=== PATIENT | female | born 1990 | race Caucasian/White ===

== ENCOUNTER 2024-09-19 15:59 | Outpatient (RCR) | payer OTHER, SELFPAY ==
[2024-09-19 16:46] VITALS: BP 126/76; PULSE 84
== END 2024-10-25 07:35 | disposition home or self-care (01) ==
LOC: ANHOBOP 15:59
PROVIDERS: Visit Provider Obstetrics & Gynecology
DX: O13.9 Gestational [pregnancy-induced] hypertension without significant proteinuria, unspecified trimester (principal)
CPT/HCPCS: 59025

== ENCOUNTER 2024-09-21 10:04 | Inpatient (IN) | payer OTHER, SELFPAY ==
[2024-09-21] VITALS (46 sets, daily range): BP systolic 106–129; BP diastolic 65–92; PULSE 70–95; RESP 14–20; TEMP 36.4–36.9; O2SAT 95–100; BMI 30.1
--- OUTSIDE RECORDS SUMMARY | 2024-09-21 10:20 | XMS_ITS | Clinical Summary ---
Author Organization [facility] Address [address] [place] [id number]. [place], [place] [id number] [place] [id number] Care Team Providers Care Manager Graphic Name Role Phone None, Provider MD Primary Care Provider Unavaila ble Allergies No known active allergies Medications methadone (METHADOSE) 40 MG disintegrating tablet Take 3.5 tablets (140 mg total) by mouth. Active Social History Tobacco Use Types Packs/Day Years Used Date Smoking Tobacco: Never Assessed Estimated Date of Delivery Comme nts Yes 12/19/2023 Sex and Gender Information Value Date Recorded Sex Assigned at Not on file Legal Sex Female 5:47 PM [employer] Gender Identity Not on file Sexual Orientation Not on file Last Filed Vital Signs Vital Sign Reading Time Taken Comments Blood Pressure 115/68 01/30/2024 8:00 PM CDT Pulse 95 01/30/2024 6:50 PM CDT Temperature 36.9 ??C (98.5 ??F) 01/30/2024 6:25 PM CD T Respiratory Rate 18 01/30/2024 6:25 PM CDT Oxygen Saturation 95% 01/30/2024 8:00 PM CDT Inhaled Oxygen Concentration - - Weight 78.2 kg (172 lb 6.4 oz) 01/30/2024 6:25 P M CDT Height 161.3 cm (5' 3.5 ) 01/30/2024 6:25 PM CDT Body Mass Index 30.06 01/30/2024 6:25 PM CDT Plan of Treatment Health Maintenance Due Date Last Done Comments Cervical Cancer Screening Pap Smear (Age 30 to 64) Every 3 Years 1989 Annual Physical 1992 DTaP, Tdap and Td Vaccines (6 - Tdap) 04/16/2004 04/15/2004, 04/05/1995, 01/30/1991, Additional history exists Hepatitis C 2007 Cervical Cancer Screening Pap with HPV Testing (Age 30 to 64) Every 5 Years 2019 Cervical Cancer Screening with HPV 2019 COVID-19 Vaccine (2023- season) 2024 05/04/2021 Influenza Adult (#1) 2024 RSV Immunization or 60+ Years (1 - 1-dose 75+ series) 2064 Hepatitis B Vaccines Completed 01/17/2000, 08/08/1999, 07/04/1999 HPV Vaccines Aged Out No longer eligi ble based on patient's age to complete this topic Meningococcal Vaccine Aged Out No grayson humza eligible based on patient's age to complete this topic Pneumococcal Vaccine: Pediatrics (0 to 5 Years) and At-Risk Patients (6 to 64 Years) Aged Out No longer eligible based on patient's age to complete this topic RSV Immunizations Under 20 Months Aged Out No longer eligible based on patient's age to complete this topic Insurance [address] [place] [address] [place] Care Teams Manager Graphic Relationship Specialty Start Date End Date None, Provider, MD PCP - General UNKNOWN PHYSICIAN SPECIALTY 01/30/24
--- OUTSIDE RECORDS SUMMARY | 2024-09-21 10:21 | XMS_ITS | Data Portability ---
Author Organization [facility] [place] Address [address] [place] [address] Assessment Encounter Date Assessment Date Assessment LastModified by Organization Details LastModified Time 09/19/2024 09/19/2024 Patient is ___weeks . Discussed plan. Not available 09/19/2024 12:26:41 Plan of Treatment Reminders Order Date Submit Date Provider Last Modified By Organization Details Last Modified Time Details Appointments None recorde d. Lab CBC w/ auto diff 024 08/22/20 24 [facility] (Lab), [address], [place], [address], 5 04:40:37 iron + TIBC + ferriti n, serum 024 08/22/20 24 [facility] (Lab), [address], [place], [address], 5 04:40:37 Referral None recorde d. Procedures None recorde d. Surgeries None recorde d. Imaging US, obstetr ic, follow- up 024 08/04/20 24 [email or web address] [place], [address], [place], [address], 4 20:34:31 Medication Orders None recorde d. Patient TargetsNo targets recorded. Patient InstructionsNo instructions recorded. Reason for Referral None Reported. Results Created Date Observation Date Name Description Value Unit Range Abnormal Flag Note LastModifiedBy Organization Detail LastModifiedTime 07/07/20 24 07/07/2024 HEMAT OCRIT (HCT) HCT 31.6 % (based on docume nted legal sex) 34.0-4 5.0 low Not Available [facility] (Lab) [address], [place], [address], 07/08/2024 14:51:42 07/07/20 24 07/07/2024 HEMOG LOBIN (HGB) HGB 10.2 g/dL (based on docume nted legal sex) 11.6-1 5.4 low Not Available [facility] (Lab) [address], [place], [address], 07/08/2024 14:51:43 07/07/20 24 07/07/2024 GTT - GESTA CALIN L MARILUZ N, ACOG OB glucose, 1 hour screen 109 mg/dL 70-135 Not Available [facility] (Lab) [address], [place], [address], 07/08/2024 14:51:43 07/07/20 24 07/07/2024 HIV 1/2 ANTIG EN/AN TIBOD Y, REFLE X CONFI RMATI ON HIV antigen/anti body Nonrea ctive nonrea ctive HIV-1 antig en and HIV-1 /HIV- 2 antib odies were not detec carline. No labor atory evide nce of HIV infec tion. Not Available [facility] (Lab) [address], [place], [address], 07/08/2024 14:51:44 07/07/20 24 07/07/2024 RPR SCREE N, REFLE X TITER /CONF IRMAT ION RPR screen Nonrea ctive nonrea ctive Not Available [facility] (Lab) [address], [place], [address], 07/08/2024 14:51:44 09/05/19 25 09/05/2024 CULTU RE: GROUP B STREP SCREE N, REFLE X SUSCE PTIBI LITY result report SEE RESULT S BELOW Test: Cultu re: Group B Strep , Refle x Susce ptibi lity ([facility]/ [facility] ) Speci men Sourc e: Vagin a/Rec hank Speci men Type: Vagin al/Re ctal Speci men Date: 2024 1522 Resul t Date: 2024 1430 Resul t Statu s: Final resul t Abnor mal: No Resul ting Lab: [facility] [address] [facility] [facility] [address] Tel: CULTU RE ----- ----- ----- --- No Group B strep isola carline at 2 days (dinora ctive broth enhan cemen t) Not Available [facility] (Lab) [address], [place], [address], 09/08/2024 15:34:08 09/10/19 25 09/10/2024 CBC W/DIF F WBC 8.6 10'3/ uL 3.5-10 .5 Not Available [facility] (Lab) [address], [place], [address], 09/11/2024 04:40:35 09/10/19 25 09/10/2024 CBC W/DIF F RBC 3.87 10'6/ uL (based on docume nted legal sex) 3.80-5 .20 Not Available [facility] (Lab) [address] [place], [address], 09/11/2024 04:40:35 09/10/19 25 09/10/2024 CBC W/DIF F HGB 11.2 g/dL (based on docume nted legal sex) 11.6-1 5.4 low Not Available [facility] (Lab) [address], [place], [address], 09/11/2024 04:40:35 09/10/19 25 09/10/2024 CBC W/DIF F HCT 34.8 % (based on docume nted legal sex) 34.0-4 5.0 Not Available [facility] (Lab) [address], [place], [address], 09/11/2024 04:40:35 09/10/19 25 09/10/2024 CBC W/DIF F MCV 89.9 fL 80.0-9 9.0 Not Available [facility] (Lab) [address], [place], [address], 09/11/2024 04:40:35 09/10/19 25 09/10/2024 CBC W/DIF F MCH 28.9 pg 27.0-3 4.0 Not Available [facility] (Lab) [address], [place], [address], 09/11/2024 04:40:35 09/10/19 25 09/10/2024 CBC W/DIF F MCHC 32.2 g/dL 32.0-3 5.5 Not Available [facility] (Lab) [address], [place], [address], 09/11/2024 04:40:35 09/10/19 25 09/10/2024 CBC W/DIF F RDW 15.3 % 11.0-1 5.0 high Not Available [facility] (Lab) [address], [place], [address], 09/11/2024 04:40:35 09/10/19 25 09/10/2024 CBC W/DIF F plt 271 10'3/ uL 150-40 0 Not Available [facility] (Lab) [address], [place], [address], 09/11/2024 04:40:35 09/10/19 25 09/10/2024 CBC W/DIF F MPV 11.4 fL 8.8-12 .1 Not Available [facility] (Lab) [address], [place], [address], 09/11/2024 04:40:35 09/10/19 25 09/10/2024 CBC W/DIF F neutrophils 79.1 % 34.0-7 3.0 high Not Available [facility] (Lab) [address], [place], [address], 09/11/2024 04:40:35 09/10/19 25 09/10/2024 CBC W/DIF F lymphocytes 12.9 % 15.0-5 0.0 low Not Available [facility] (Lab) [address], [place], [address], 09/11/2024 04:40:35 09/10/19 25 09/10/2024 CBC W/DIF F monocytes 6.4 % 1.0-15 .0 Not Available [facility] (Lab) [address], [place], [address], 09/11/2024 04:40:35 09/10/19 25 09/10/2024 CBC W/DIF F eosinophils 0.5 % 0.0-8. 0 Not Available [facility] (Lab) [address], [place], [address], 09/11/2024 04:40:35 09/10/19 25 09/10/2024 CBC W/DIF F basophils 0.7 % 0.0-2. 0 Not Available [facility] (Lab) [address], [place], [address], 09/11/2024 04:40:35 09/10/1909/10/2024 CBC W/DIF F immature granulocytes 0.4 % no define d refere nce range Immat ure Granu locyt es (IG) repre sents autom ated enume ratio n of Metam yeloc ytes, Myelo cytes and Promy elocy rafael when IG is < 5%. Blast s are not inclu ded in IG and repor carline separ ately if prese nt. Not Available [facility] (Lab) [address] [place], [address], 09/11/2024 04:40:35 09/10/19 25 09/10/2024 CBC W/DIF F absolute neutrophils 6.8 10'3/ uL 1.5-8. 0 Not Available [facility] (Lab) [address], [place], [address], 09/11/2024 04:40:35 09/10/19 25 09/10/2024 CBC W/DIF F absolute lymphocytes 1.1 10'3/ uL 1.0-4. 0 Not Available [facility] (Lab) [address], [place], [address], 09/11/2024 04:40:35 09/10/19 25 09/10/2024 CBC W/DIF F absolute monocytes 0.6 10'3/ uL 0.2-1. 0 Not Available [facility] (Lab) [address], [place], [address], 09/11/2024 04:40:35 09/10/19 25 09/10/2024 CBC W/DIF F absolute eosinophils 0.0 10'3/ uL 0.0-0. 6 Not Available [facility] (Lab) [address], [place], [address], 09/11/2024 04:40:35 09/10/19 25 09/10/2024 CBC W/DIF F absolute basophils 0.1 10'3/ uL 0.0-0. 3 Not Available [facility] (Lab) [address] [place], [address], 09/11/2024 04:40:35 09/10/1909/10/2024 CBC W/DIF F absolute immature granulocytes 0.0 10'3/ uL 0.00-0 .10 Refer ence range s for nonbi nary/ inter sex or unspe cifie d gende r patie nts have not been estab lishe d. Pleas e refer to the sherlyo wing table for range s estab lishe d for cisge nder patie nts and evalu ate in the clini shelbie mami xt of the indiv idual patie nt: https :[email or web address] gonsalves book. nm.or g/Gen derX Not Available [facility] (Lab) [address], [place], [address], 09/11/2024 04:40:35 09/10/19 25 09/10/2024 LISA TIN / IRON / TRANS LISA N / TIBC iron 37 ug/dL 40-170 low Not Available [facility] (Lab) [address], [place], [address], 09/11/2024 04:40:37 09/10/19 25 09/10/2024 LISA TIN / IRON / TRANS LISA N / TIBC transferrin 423 mg/dL 200-36 0 high Not Available [facility] (Lab) [address], [place], [address], 09/11/2024 04:40:37 09/10/19 25 09/10/2024 LISA TIN / IRON / TRANS LISA N / TIBC ferritin 8.8 NG/mL 8.0-25 2.0 Not Available [facility] (Lab) [address], [place], [address], 09/11/2024 04:40:37 09/10/19 25 09/10/2024 LISA TIN / IRON / TRANS LISA N / TIBC TIBC 592 ug/dL 250-45 0 high Not Available [facility] (Lab) [address], [place], [address], 09/11/2024 04:40:37 09/10/19 25 09/10/2024 LISA TIN / IRON / TRANS LISA N / TIBC iron saturation 6 % 20-55 low Not Available [facility] (Lab) [address], [place], [address], 09/11/2024 04:40:37 08/04/20 24 08/04/2024 US, obste tric, follo w-up No observ ation record ed. [email or web address] [place] [address], [place], [address], 08/04/2024 14:41:45 08/04/20 24 08/04/2024 US, obste tric, follo w-up No observ ation record ed. [email or web address] [facility] [address], [place], [address], 08/04/2024 17:51:15 09/19/19 25 09/19/2024 imagi ng/di agnos tic resul t No observ ation record ed. [facility] [address], [place], [address], 09/19/2024 19:30:08 Result Notes None recorded. Problems Name Problem SNOMED Code Status Onset Date Resolution Date Notes Provider Name and Address Organization Details Recorded Time Uterine scar from previous surgery affecting 89128790 Active 2023 CHUCKIE HUNTER MD [address], [place], [address], [facility] 4 11:06:39 Marijuana user 456556657 Active 2023 CHUCKIE HUNTER MD [address], [place], [address], [facility] 4 11:06:43 Tobacco user 589254731 Active 2023 CHUCKIE HUNTER MD [address], [place], [address], [facility] 4 11:06:45 Methadone dependenc e 133370150 Active 2023 CHUCKIE HUNTER MD [address], [place], [address], [facility] 4 11:06:46 95067626 Active 2023 Alea radford, [facility] 4 12:01:00 Past history of section 633973563 Active h/oPLTCS for breech presenata tion - desires TOLAC Do Grady null, [facility] 4 17:13:24 Past history of section 209293377 Active h/oPLTCS for breech presenata tion - desires TOLAC Do Grady null, [facility] 4 17:13:24 Problem Notes None recorded. Procedures Surgical History Date Name Laterality Status Provider Name and Address Organization Details Recorded Time 2 Caesarean Section completed [facility] 02/19/2024 10:32:05 1 Date of Last Pap Smear completed [facility] 02/19/2024 10:38:16 6 Orthopedic Surgery completed [facility] 02/19/2024 10:41:01 Imaging Results Imaging Date Name Status LastModified by Organiz ation Details LastModified Time 08/04/2024 US, obstetric, follow-up completed [email or web address] [place] [address], [place], [address], 08/04/2024 14:41:45 08/04/2024 US, obstetric, follow-up completed [address] [address] [facility], [place], [address], 08/04/2024 17:51:15 09/19/2024 imaging/diag nostic result active [facility] [address], [place], [address], 09/19/2024 19:30:08 Procedure Notes None recorded. Medical Equipment None Reported. Allergies No known drug allergies Medications Name Sig Start Date Stop Date Status Note LastModified by Organization Details LastModified Time amoxicillin 500 mg capsule TAKE 1 CAPSULE BY MOUTH THREE TIMES DAILY FOR 7 DAYS 02/18 completed Not Available Not Available Not Available ondansetron HCl 4 mg tablet TAKE 1 TABLET BY MOUTH EVERY 4 TO 6 HOURS NEEDED FOR NAUSEA active Not Available Not Available No t Available methadone 10 mg/mL oral concentrate active Not Available Not Available Not Available LEGAL NURSE CONSULTANT-PNV-DHA 28 mg iron-1 mg-200 mg capsule Take 1 capsule every day by oral route as directed . 2023 active Not Available Not Available Not Avai lable Vitals Date Recorded Body height Body mass index (BMI) Body weight Systolic blood pressure Diastolic blood pressure Provider Name and Address Organization Details Last Updated DateTime 08/04/2024 161.29 cm 29.3 kg/m2 07750.52 g 121 mm[Hg] 71 mm[Hg] Cat [facility] 4 14:38:41 Date Recorded Body height Body mass index (BMI) Body weight Systolic blood pressure Diastolic blood pressure Provider Name and Address Organization Details Last Updated DateTime 08/22/2024 161.29 cm 29.3 kg/m2 60617.52 g 114 mm[Hg] 83 mm[Hg] [facility] 12:35:51 Date Recorded Body height Body mass index (BMI) Body weight Systolic blood pressure Diastolic blood pressure Provider Name and Address Organization Details Last Updated DateTime 09/05/2024 161.29 cm 30 kg/m2 62796.89 g 120 mm[Hg] 79 mm[Hg] Rosita Deluca [facility] 5 12:48:07 Date Recorded Body height Body mass index (BMI) Body weight Systolic blood pressure Diastolic blood pressure Provider Name and Address Organization Details Last Updated DateTime 09/10/2024 161.29 cm 29.3 kg/m2 90187.52 g 131 mm[Hg] 80 mm[Hg] [facility] 5 12:45:07 Date Recorded Body weight Body mass index (BMI) Body height Systolic blood pressure Diastolic blood pressure Systolic blood pressure Diastolic blood pressure Provider Name and Address Organization Details Last Updated DateTime 5 69578.7 029 g 29.6 kg/m2 161.29 cm 144 mm[Hg] 94 mm[Hg] 166 mm[Hg] 102 mm[Hg] Alea Negrete [facility] 12:44:57 Social History Question Answer Notes LastModified by Organizat ion Details LastModified Time What Is Your Level Of Alcohol Consumption? None Information not available 02/19/2024 Are You Blind Or Do You Have Difficulty Seeing? No Information n ot available 02/19/2024 What Is Your Level Of Caffeine Consumption? Moderate Information not available 02/19/2024 How Much Tobacco Do You Chew? None Information not available 02/19/2024 In The 14 Days Before Symptom Onset, Have You Had Close Contact With A Laboratory-confirm ed COVID-19 While That Case Was Ill? No Information n ot available 02/19/2024 In The 14 Days Before Symptom Onset, Have You Had Close Contact With A Person Who Is Under Investigation For COVID-19 While That Person Was Ill? No Information not available 02/19/2024 Have You Been To An Area Known To Be High Risk For COVID-19? No Information not available 02/19/2024 Are You Deaf Or Do You Have Serious Difficulty Hearing? No Information not available 02/19/2024 What Type Of Diet Are You Following? REGULAR Information n ot available 02/19/2024 What Is The Highest Grade Or Level Of School You Have Completed Or The Highest Degree You Have Received? [id number] Information not available 02/19/2024 What Is Your Occupation? Unemployed Information not available 02/19/2024 Are There Any Guns Present In Your Home? No Information not available 02/19/2024 Do You Use Protection During Sex? No Information not available 02/19/2024 Do You Use Your Seat Belt Or Car Seat Routinely? Yes Information not available 02/19/2024 Do You Have Smoke And Carbon Monoxide Detectors In Your Home? Yes Information not available 02/19/2024 At What Age Did You Start Smoking Tobacco? 12 Information not available 03/18/2024 How Much Tobacco Do You Smoke? No Information not available 02/19/2024 Do You Feel Stressed (tense, Restless, Nervous, Or Anxious, Or Unable To Sleep At Night)? [id number] Information not available 03/18/2024 Do You Use Any Illicit Or Recreational Drugs? No Information not available 02/19/2024 Do You Use Sunscreen Routinely? No Information not available 03/18/2024 How Many Years Have You Smoked Tobacco? 18 Information not available 03/18/2024 Have You Used IV Drugs? No Information not available 02/19/2024 Sex: Unknown Functional Status Question Answer Note LastModified by Organizat ion Details LastModified Time Do you have difficulty walking or climbing stairs? No [email or web address] Information not available 06/11/2024 Are you able to walk? YESWOREST Information not available 02/19/2024 Are you able to care for yourself? Yes [email or web address] Information not available 06/11/2024 Do you have difficulty dressing or bathing? No [email or web address] Information not available 06/11/2024 What is your exercise level? Moderate Information not available 02/19/2024 Mental Status None recorded. Family History Relationship Description Onset Age of this Age Resolved Age Notes LastModified by Organization Details LastModified Time Mother Heart failure [email or web address] Not available 2023 10:40:41 Medical History Condition Response Allergies (Food, seasonal, environmental ) N Other N Drug/Latex Allergies/Reactions N Blood Transfusion N Breast Cancer N Dermatologic Disorders N Lung Disease N Defects or Inherited Disease N Breast Problem N Gestational Diabetes N Hematologic disorders N Anesthesia Complications N History of STI N Deep Vein Thrombosis N Polycystic ovary syndrome N Anxiety Disorder N Autoimmune disease N Arthritis N Polyps N Infertility N Acid Reflux (GERD) N History of abnormal pap N Cancer N Varicosities N Stroke N Neurologic/Epilepsy N Endometriosis N High Cholesterol N Fibromyalgia N Headaches N Kidney Disease N Heart Problems N Thyroid Problems N Kidney or Bladder Problems N GI Problems N Eating Disorder N Anemia N Art (IVF or FET) N Psychiatric Illness N Ovarian Cancer N Diabetes N Pulmonary (TB, Asthma) N Hepatitis/Liver Disease N No Past Medical History N Eczema N Urinary Tract Infection N Abuse/Domestic Violence N Asthma N Trauma/Violence N Depression/ depression N Heart Disease N Pre-Eclampsia N Hypertension N Osteoporosis N Thrombophilias N Gynecological History Statement/Question Response Abnormal Pap N Date of LMP 12/19/2023 N On BCP's at Conception? N STIs/STDs N Was last menstrual period normal Y HPV Vaccine N Duration of Flow (days) 6 Current Control Method Age at First Child 24 Date of Last Colonoscopy Frequency of Cycle (Q days) 27 Sexually Active? Y None Menses Monthly Y Date of DEXA bone scan Age of first menstrual cycle 10 Date of Last Pap Smear 08/27/2020 Sexual Problems? N LMP Definite Desired Control Method None N Obstetrics History GPAL:G 4 P 2 0 1 2 Type Value Full Term 2 Spontaneous 1 Living 2 Total 4 Past Encounters Encounter ID Performer Location Encounter Start Date Encounter Closed Date Diagnosis/Indication Diagnosis SNOMED-CT Code Diagnosis ICD10 Code [id number] [address],[place] [address] 02/19/2024 09:53:34 02/19/2024 10:35:08 [id number] CHUCKIE HUNTER MD [place] [address],[place] [address] 02/19/2024 09:55:45 02/19/2024 11:09:13 test positive 362733947 Z32.01 1. Exam today within normal limits.2. Ultrasound today confirms GA and viability. EDC . GC/Claalvertodi a testing done: will f/u as indicated. 4. ACOG guidelines and plan of care for reviewed with patient. All questions answered.5 . Return to office at 12 weeks for new OB visit6. Will need new OB labs at next visit.7. Genetic screening: desires at 10 weeks, orders given today. Methadone dependence 231 650831 F11.20 - stable on 130mg since prior to last - no issues, doing well Tobacco user 680021465 Z 72.0 - discussed cessation Marijuana user 729897175 F12.90 - discussed cessation Uterine sc ar from previous surgery affecting 16266363 O34.29 [id number] [facility] [address],[place] [address] 03/18/2024 10:58:28 03/18/2024 11:41:40 screening 350102738 Z36.82 Z36.87 Z3A.12 [id number] CHUCKIE HUNTER MD [place] [address],[place] [address] 03/18/2024 10:59:27 03/18/2024 12:19:39 Gestation period, 12 weeks 90727674 Z3A.12 Methadone dependence 231 184963 F11.20 - stable on 130mg since prior to last - no issues, doing well Tobacco user 726178393 Z 72.0 - discussed cessation Uterine sc ar from previous surgery affecting 26948139 O34.29 - desires TOLAC [id number] Pierre Spears MD [place] [address],[place] [address] 04/18/2024 14:15:48 04/18/2024 14:45:59 Routine care 888877179 Z34.92 [id number] uZri Quach [place] [address],[place] [address] 05/08/2024 14:06:29 05/08/2024 15:13:56 screening for malformation 067087103 Z36.3 Z3A.20 [id number] CHUCKIE HUNTER MD [place] [address],[place] [address] 05/13/2024 12:00:30 05/13/2024 13:02:25 Methadone dependence 544957750 F11.20 - stable on 130mg since prior to last - no issues, doing well Past pregn yvette history of section 536044453 Z98.890 - desires tolac- repeat growth US at 32 weeks Tobacco user 701970230 Z 72.0 - discussed cessation Marijuana user 027067028 F12.90 - discussed cessation Gestation period, 20 weeks 57541685 Z3A.20 - continue PNV [id number] CHUCKIE HUNTER MD [place] [address],[place] [address] 06/11/2024 13:00:26 06/11/2024 14:02:49 Past history of section 609556640 Z98.890 - desires tolac- repeat growth US at 32 weeks Methadone dependence 231 384888 F11.20 - stable on 130mg since prior to last - no issues, doing well Gestation period, 25 weeks 51550355 Z3A.25 - continue PNV [id number] CHUCKIE HUNTER MD [place] [address],[place] [address] 07/07/2024 12:02:49 07/07/2024 12:29:39 Methadone dependence 698766556 F11.20 - stable on 130mg since prior to last - no issues, doing well Past pregn yvette history of section 302162597 Z98.890 - desires tolac- repeat growth US at 32 weeks Tobacco user 419595467 Z 72.0 - discussed cessation Marijuana user 052734426 F12.90 - discussed cessation Gestation period, 28 weeks 06672305 Z3A.28 - continue PNV [id number] CHUCKIE HUNTER MD [place] [address],[place] [address] 07/21/2024 13:55:23 07/21/2024 14:25:41 Uterine scar from previous surgery affecting 98613965 O34.29 - desires TOLAC- repeat growth US next visit Methadone dependence 231 220197 F11.20 - stable on 130mg since prior to last - no issues, doing well Gestation period, 30 weeks 18100524 Z3A.30 - continue PNV [id number] Zuri Quach [place] [address],[place] [address] 08/04/2024 13:58:50 08/04/2024 14:38:53 Medical examination for suspected condition 448303428 Z03.79 Z3A.32 [id number] CHUCKIE HUNTER MD [place] [address],[place] [address] 08/04/2024 13:59:14 08/04/2024 14:57:18 Past history of section 844645831 Z98.890 - desires tolac- repeat growth US at 32 weeks wnl Methadone dependence 231 514885 F11.20 - stable on 130mg since prior to last - no issues, doing well Anemia of 2733 2003 O99.019 - Fe supplement - repeat labs at 34 weeks Gestation period, 32 weeks 2798586 Z3A.32 - continue PNV- discussed RSV vaccine, rx given [id number] CHUCKIE HUNTER MD [place] [address],[place] [address] 08/22/2024 12:24:59 08/25/2024 11:22:13 Anemia of 65115736 O99.019 - Fe supplement - repeat labs ordered today Gestation period, 35 weeks 21859409 Z3A.35 - continue PNV Uterine sc ar from previous surgery affecting 05266064 O34.29 - desires TOLAC- repeat growth US wnl Methadone dependence 231 243190 F11.20 - stable on 130mg since prior to last - no issues, doing well [id number] CHUCKIE HUNTER MD [place] [address],[place] [address] 09/05/2024 12:33:03 09/08/2024 18:24:29 Uterine scar from previous surgery affecting 46477327 O34.29 - desires TOLAC- repeat growth US wnl Methadone dependence 231 769369 F11.20 - stable on 130mg since prior to last - no issues, doing well Gestation period, 37 weeks 67482845 Z3A.37 - continue PNV Anemia of 2734 2004 O99.019 - Fe supplement - repeat labs ordered today [id number] CHUCKIE HUNTER MD [place] [address],[place] [address] 09/10/2024 12:28:35 09/10/2024 13:04:44 Uterine scar from previous surgery affecting 90631676 O34.29 - desires TOLAC- repeat growth US wnl Gestation period, 38 weeks 30186093 Z3A.38 - continue PNV [id number] Pierre Spears MD [place] [address],[place] [address] 09/19/2024 12:16:12 09/19/2024 13:32:39 Routine care 822959292 Z34.92 Health Concerns Section Related Observation LastModified by Organization Detai ls LastModified Time None Recorded Concern Status LastModified by Organization Details LastModified Time None Recorded Advance Directives Directive None Recorded Payers Encounter Date Sequence Insurance Name Policy Number Policy Perea Covered Member ID Perea Member ID Guarantor Name 08/04/2024 1 [facility] (MEDICAID HMO) [id number] 0003 Armida Coffman [id number] Armida Coffman 08/22/2024 1 [facility] (MEDICAID HMO) [id number] 0003 Armida Coffman [id number] Armida Coffman 09/05/2024 1 [facility] (MEDICAID HMO) [id number] 0003 Armida Madisonell [id number] Armida Coffman 09/10/2024 1 [facility] (MEDICAID HMO) [id number] 0003 Armida Madisonell [id number] Armida Coffman 09/19/2024 1 [facility] (MEDICAID HMO) [id number] 0003 Armida Coffman [id number] Armida Coffman OBGyn Episode Ob Episode Information Episode Created Date Number of Fetuses Patient Bloodtype Patient rh Status Prepregnancy Weight lbs Domestic Partner Domestic Partner Phone Father Name Banquet Waiter/Waitress Status 03/18/20 24 1 O Positive OPEN Fetus Data First Name Last Name Admitted to NICU Weight (g) Sex Living Outcome Pediatric Complications Fetus ID Race Codes Race Delivery Type [id number] Problems Problem Notes Methadone 130mg Problem Name Start Date End Date Resolution Snomed Code Not e Past history of section [id number] h/oPLTCS for br eech presenatation - desires TOLAC Kenneth Calculation Initial Kenneth Date Initial Exam Date Initial Exam Provider Initial Ultrasound Date Last Menstrual Period Date Ultra Sound Weeks Gestation 09/24/2024 03/18/2024 03/18/2024 12/19/2023 13 Eighteen To Twenty Week Kenneth Update Ultra Sound Date Fundal Height At Umbil Quickening Date Ultra Sound Latest Weeks Gestation Final Kenneth Confirmed By Final Kenneth Confirmed Date Final Kenneth Date Ultra Sound Latest Days Gestation 0 [id number] 03/18/2024 09/24/19 25 0 Pre- Flowsheet Flowsheet Date 03/18/2024 Amaral Score Blood Edema Fundus Height Fundus Units Glucose Ketones Leukocytes Nitrite Labor Signs Protein Cervic Dilation Cervic Effacement Cervic Station neg none Type Weight in lbs Pre/Post Dialysis Refused Weight 176.815636804065 BP Diastolic BP Location Tested BP Systolic BP Type 75 L arm 145 sitting Fetus Heart Rate Present A 135 Fetus Movement A No Comments Presents to establish prenat al care. complicated by a history of PLTCS for breech presentation 03/2022. Desires TOLAC. Patient currently on methadone, stable on 130mg. Had to uptitrate in past , will continue to monitor for worsening symptoms. NT/NB wnl today, LR female NIPT. Other new OB labs wnl as well. Discussed normal care. RTC 4 weeks. Flowsheet Date 04/18/2024 Amaral Score Blood Edema Fundus Height Fundus Units Glucose Ketones Leukocytes Nitrite Labor Signs Protein Cervic Dilation Cervic Effacement Cervic Station Type Weight in lbs Pre/Post Dialysis Refused 173.440787312752 BP Diastolic BP Location Tested BP Systolic BP Type 79 L arm 128 sitting Fetus Heart Rate Present A 134 Fetus Movement A Yes Comments no complaints, no problems, routine care, no contractions, no vaginal bleeding, no loss of fluid, no cramping Flowsheet Date 05/08/2024 Amaral Score Blood Edema Fundus Height Fundus Units Glucose Ketones Leukocytes Nitrite Labor Signs Protein Cervic Dilation Cervic Effacement Cervic Station Type Weight in lbs Pre/Post Dialysis Refused BP Diastolic BP Location Tested BP Systolic BP Type Fetus Heart Rate Present Fetus Movement Comments Flowsheet Date 05/13/2024 Amaral Score Blood Edema Fundus Height Fundus Units Glucose Ketones Leukocytes Nitrite Labor Signs Protein Cervic Dilation Cervic Effacement Cervic Station neg none none trace Type Weight in lbs Pre/Post Dialysis Refused Weight 175.704580105617 BP Diastolic BP Location Tested BP Systolic BP Type 70 L arm 110 sitting Fetus Heart Rate Present A 140 Fetus Movement A Yes Comments Patient c/o of nausea, imrpo francisco javier with meds. Good movement. Anatomy complete and normal, EFW 42%. Stable on 130mg methadone. Continue routine care. RTC 4 weeks. Flowsheet Date 06/11/2024 Amaral Score Blood Edema Fundus Height Fundus Units Glucose Ketones Leukocytes Nitrite Labor Signs Protein Cervic Dilation Cervic Effacement Cervic Station neg none none trace Type Weight in lbs Pre/Post Dialysis Refused 173.242104661982 BP Diastolic BP Location Tested BP Systolic BP Type 74 L arm 132 sitting Fetus Heart Rate Present A 145 Fetus Movement A Yes Comments Doing well, no issues. Inter mittent nausea. Good movement, no cramping or bleeding. Stable on methadone. Discussed GCT and labs for next visit. RTC 3 weeks. Flowsheet Date 07/07/2024 Amaral Score Blood Edema Fundus Height Fundus Units Glucose Ketones Leukocytes Nitrite Labor Signs Protein Cervic Dilation Cervic Effacement Cervic Station neg none none trace Type Weight in lbs Pre/Post Dialysis Refused Weight 168.192085391285 BP Diastolic BP Location Tested BP Systolic BP Type 83 L arm 126 sitting Fetus Heart Rate Present A 140 Fetus Movement A Yes Comments Patient c/o of nausea and ro und ligament pain. Good movement. No cramping or bleeding. GCT and labs today. Discussed repeat growth US at 32 weeks for TOLAC planning. Discussed tdap. RTC 2 weeks. Flowsheet Date 07/21/2024 Amaral Score Blood Edema Fundus Height Fundus Units Glucose Ketones Leukocytes Nitrite Labor Signs Protein Cervic Dilation Cervic Effacement Cervic Station neg none none trace Type Weight in lbs Pre/Post Dialysis Refused Weight 169.619858105154 BP Diastolic BP Location Tested BP Systolic BP Type 77 L arm 129 sitting Fetus Heart Rate Present A 140 Fetus Movement A Yes Comments Patient c/o of slight nausea and Buchanan Jalloh. No cramping or bleeding. Good movement. Passed GCT. Discussed mild anemia, started Fe supplement. WIll receck at 34 weeks. Growth US scheduled for next visit due to hx of c section and plan for TOLAC. RTC 2 weeks. Flowsheet Date 08/04/2024 Amaral Score Blood Edema Fundus Height Fundus Units Glucose Ketones Leukocytes Nitrite Labor Signs Protein Cervic Dilation Cervic Effacement Cervic Station Type Weight in lbs Pre/Post Dialysis Refused BP Diastolic BP Location Tested BP Systolic BP Type Fetus Heart Rate Present Fetus Movement Comments Flowsheet Date 08/04/2024 Amaral Score Blood Edema Fundus Height Fundus Units Glucose Ketones Leukocytes Nitrite Labor Signs Protein Cervic Dilation Cervic Effacement Cervic Station neg none Type Weight in lbs Pre/Post Dialysis Refused Weight 168.521103350900 BP Diastolic BP Location Tested BP Systolic BP Type 71 L arm 121 sitting Fetus Heart Rate Present A Present Fetus Movement A Yes Comments Patient c/o of Buchanan Jalloh . Good movement, no cramping or bleeding. Tdap received. Discussed preadmission and RSV vaccine. EFW 22%, normal GRAYSON. Will repeat anemia labs next visit. RTC 2 weeks. Flowsheet Date 08/22/2024 Amaral Score Blood Edema Fundus Height Fundus Units Glucose Ketones Leukocytes Nitrite Labor Signs Protein Cervic Dilation Cervic Effacement Cervic Station neg none Type Weight in lbs Pre/Post Dialysis Refused Weight 168.108990605859 BP Diastolic BP Location Tested BP Systolic BP Type 83 L arm 114 sitting Fetus Heart Rate Present A 140 Fetus Movement A Yes Comments Patient c/o of Armand Jalloh . No bleeding. Good movement. Discussed anemia labs for this visit. Preadmission scheduled. Discussed GBS for next visit. RTC 1 week. Flowsheet Date 09/05/2024 Amaral Score Blood Edema Fundus Height Fundus Units Glucose Ketones Leukocytes Nitrite Labor Signs Protein Cervic Dilation Cervic Effacement Cervic Station 1cm 50% -3 Type Weight in lbs Pre/Post Dialysis Refused Weight 172.196534533225 BP Diastolic BP Location Tested BP Systolic BP Type 79 120 Fetus Heart Rate Present A 145 Fetus Movement A Yes Comments Patient is having BH contrac tions, discharge, nausea and vomiting. Good movement. No bleeding. Discussed labor precautions. Anemia labs ordered. GBS collected, SVE 1.5cm. RTC 1 week. Flowsheet Date 09/10/2024 Amaral Score Blood Edema Fundus Height Fundus Units Glucose Ketones Leukocytes Nitrite Labor Signs Protein Cervic Dilation Cervic Effacement Cervic Station neg none Type Weight in lbs Pre/Post Dialysis Refused Weight 168.255804323317 BP Diastolic BP Location Tested BP Systolic BP Type 80 L arm 131 sitting Fetus Heart Rate Present A 145 Fetus Movement A Yes Comments Patient c/o Armand Jalloh. L osing mucus plug. Good movement. Discussed labor precautions. GBS negative. RTC 1 week. Flowsheet Date 09/19/2024 Amaral Score Blood Edema Fundus Height Fundus Units Glucose Ketones Leukocytes Nitrite Labor Signs Protein Cervic Dilation Cervic Effacement Cervic Station Type Weight in lbs Pre/Post Dialysis Refused 170.120929827744 BP Diastolic BP Location Tested BP Systolic BP Type 94 L arm 144 sitting 102 R arm 166 sitting Fetus Heart Rate Present Fetus Movement A Yes Comments Menstrual History Last Menstrual Date Menses Monthly On Bcp Conception Prior Menses Frequency Hcg Plus Date Menarche Onset Age 0412/19/2023 true 28 Genetic Screening And Infection History Question Response Note Mental Retardation/Autism false Patient's Age Will Be 35 Yea rs Or Older At Estimated Date of Delivery false Thalassemia (Sami, Yoruba, Mediterranean, Or Background): MCV < 80 false Neural Tube Defect (Meningom yelocele, Spina Bifida, Or Anencephaly) false Congenital Heart Defect false Down Syndrome false Don-Sachs (eg, Adventist, Cajun, Slovak-[place]. [place]) f alse Isabella Disease false Sickle Cell Disease Or Trait () false Hemophilia Or Other Blood Disorders false Muscular Dystrophy false Cystic Fibrosis false Micki's Chorea false Intellectual Disability/Autism false If Yes, Was Person Tested For Fragile X? false Other Inherited Genetic Or Chromosomal Disorder false Maternal Metabolic Disorder (eg, Type 1 Diabetes , PKU) false Patient Or Baby's Father Had A Child With Defects Not Listed Above false Recurrent Loss, Or A Stillbirth false Medications (including Suppl ements, Vitamins, Herbs, OTC Drugs), Illicit/Recreational Drugs, Alcohol false methadone If Yes, Agent(s) And Strength/Dosage false Any Other Genetic History false Live With Someone With TB Or Exposed To TB false Patient Or Partner Has History Of Genital Herpes false Rash Or Viral Illness Since Last Menstrual Perio d false History Of STD, Gonorrhea, Chlamydia, HPV, Syphi lis false Other Infection History false History of HIV false History of Hepatitis false Prior GBS-infected child false Hemoglobinopathy Or Carrier false Other Structural Defect false Recent Travel History Outside of Country false Delivery Information Delivery Date Delivery Type Labor Anesthesia Weeks Gestation Incision Type Labor Labor Length Hrs Delivered By Post Complications Tubal Sterilization Discharge Date Comments Discharge Information Feeding Method Contraceptive Method Maternal HG B and HCT Levels Ob Episode Information Episode Created Date Number of Fetuses Patient Bloodtype Patient rh Status Prepregnancy Weight lbs Domestic Partner Domestic Partner Phone Father Name Banquet Waiter/Waitress Status 02/19/20 24 1 CLOSED Fetus Data First Name Last Name Admitted to NICU Weight (g) Sex Living Outcome Pediatric Complications Fetus ID Race Codes Race Delivery Type 2721.55 2 F Full Term [id number] Vaginal Delivery Kenneth Calculation Initial Kenneth Date Initial Exam Date Initial Exam Provider Initial Ultrasound Date Last Menstrual Period Date Ultra Sound Weeks Gestation 0 Eighteen To Twenty Week Kenneth Update Ultra Sound Date Fundal Height At Umbil Quickening Date Ultra Sound Latest Weeks Gestation Final Kenneth Confirmed By Final Kenneth Confirmed Date Final Kenneth Date Ultra Sound Latest Days Gestation 0 0 Menstrual History Last Menstrual Date Menses Monthly On Bcp Conception Prior Menses Frequency Hcg Plus Date Menarche Onset Age Delivery Information Delivery Date Delivery Type Labor Anesthesia Weeks Gestation Incision Type Labor Labor Length Hrs Delivered By Post Complications Tubal Sterilization Discharge Date Comments 4 Discharge Information Feeding Method Contraceptive Method Maternal HG B and HCT Levels Ob Episode Information Episode Created Date Number of Fetuses Patient Bloodtype Patient rh Status Prepregnancy Weight lbs Domestic Partner Domestic Partner Phone Father Name Banquet Waiter/Waitress Status 02/19/20 24 1 CLOSED Fetus Data First Name Last Name Admitted to NICU Weight (g) Sex Living Outcome Pediatric Complications Fetus ID Race Codes Race Delivery Type 3572.03 7 F Full Term [id number] Primary Kenneth Calculation Initial Kenneth Date Initial Exam Date Initial Exam Provider Initial Ultrasound Date Last Menstrual Period Date Ultra Sound Weeks Gestation 0 Eighteen To Twenty Week Kenneth Update Ultra Sound Date Fundal Height At Umbil Quickening Date Ultra Sound Latest Weeks Gestation Final Kenneth Confirmed By Final Kenneth Confirmed Date Final Kenneth Date Ultra Sound Latest Days Gestation 0 0 Menstrual History Last Menstrual Date Menses Monthly On Bcp Conception Prior Menses Frequency Hcg Plus Date Menarche Onset Age Delivery Information Delivery Date Delivery Type Labor Anesthesia Weeks Gestation Incision Type Labor Labor Length Hrs Delivered By Post Complications Tubal Sterilization Discharge Date Comments 2 Discharge Information Feeding Method Contraceptive Method Maternal HG B and HCT Levels Ob Episode Information Episode Created Date Number of Fetuses Patient Bloodtype Patient rh Status Prepregnancy Weight lbs Domestic Partner Domestic Partner Phone Father Name Banquet Waiter/Waitress Status 02/19/20 24 1 CLOSED Fetus Data First Name Last Name Admitted to NICU Weight (g) Sex Living Outcome Pediatric Complications Fetus ID Race Codes Race Delivery Type , [place] [id number] Kenneth Calculation Initial Kenneth Date Initial Exam Date Initial Exam Provider Initial Ultrasound Date Last Menstrual Period Date Ultra Sound Weeks Gestation 0 Eighteen To Twenty Week Kenneth Update Ultra Sound Date Fundal Height At Umbil Quickening Date Ultra Sound Latest Weeks Gestation Final Kenneth Confirmed By Final Kenneth Confirmed Date Final Kenneth Date Ultra Sound Latest Days Gestation 0 0 Menstrual History Last Menstrual Date Menses Monthly On Bcp Conception Prior Menses Frequency Hcg Plus Date Menarche Onset Age Delivery Information Delivery Date Delivery Type Labor Anesthesia Weeks Gestation Incision Type Labor Labor Length Hrs Delivered By Post Complications Tubal Sterilization Discharge Date Comments 8 Discharge Information Feeding Method Contraceptive Method Maternal HG B and HCT Levels
[2024-09-21] MEDS: OXYTOCIN 30 UNITS/NS 500 ML 30 UNITS/500 ML BAG 999 UNITS IV CONT (10:29)
--- NOTE | 2024-09-21 10:53 | PM.OBPRVD ---
OB - Vaginal Delivery Note Procedure Delivery date: 09/21/24 Delivery monitor: None Route of delivery: Episiotomy description: None Laceration Description: Perineal - 2nd Degree Delivery repair: vicryl Quantitative Blood Loss (ml): 200 Anesthesia type: Epidural Disposition: Floor Complications: No immediate complications Baby Date of : 09/21/24
[2024-09-21 10:59] LABS: Basophils Absolute Auto 0.1 K/mm3 (0.0-0.1); Basophils Percent Auto 0.5 % (0.2-1.2); Eosinophils Absolute Auto 0.1 K/mm3 (0-0.3); Eosinophils Percent Auto 1.1 % (0-4.4); Hematocrit 36.3 % (37.0-47.0); Hemoglobin 11.7 g/dL (12.0-15.0); Immature Granulocyte Absolute 0.05 K/mm3 (0.00-0.031); Immature Granulocyte Percent A 0.5 % (0-0.5); Lymphocytes Absolute Auto 1.61 K/mm3 (0.9-3.2); Lymphocytes Percent Auto 16.1 % (18.3-44.2); Mean Corpuscular HGB Conc 32.2 g/dl (32-36); Mean Corpuscular Volume 89.9 fl (80-100); Mean Platelet Volume 11.2 fl (7.4-10.4); Monocytes Absolute Auto 0.5 K/mm3 (0.1-0.6); Monocytes Percent Auto 5.2 % (2.6-8.5); Neutrophils Absolute Auto 7.6 K/mm3 (1.3-6.7); Neutrophils Percent Auto 76.6 % (45.5-73.1); Platelet Count Result 260 k/mm3 (150-375); Red Blood Count 4.04 M/mm3 (4.2-5.4)
--- NOTE | 2024-09-21 11:15 | LDADM ---
This patient, Armida Coffman, was admitted to Labor/Delivery/Recovery 106 on 09/21/24 at 10:04. Plans for labor, pain management and were discussed with patient. Patient/family oriented to hospital policies and general routines including ID bracelet, bed and alarms, visiting hours, pain management, procedures, bathroom and other care routines, personal items, smoking policy, room service/diet and guest tray routines, security routines, and visiting hours. Patient/Family are encouraged to report perceived risks to care and to ask questions if they do not understand what they are told or what they should do. See OBIX for further documentation.
[2024-09-21 11:35] LABS: Rapid Plasma Reagin Non-Reactive (NonReactive)
[2024-09-21] MEDS: IBUPROFEN 600 MG TABLET (11:38)
[2024-09-21] MEDS: ACETAMINOPHEN 500 MG TABLET 1000 MG (11:38)
[2024-09-21 11:54] LABS: HIV 1/2 Ab P24 Ag Result Negative (Negative)
[2024-09-21] MEDS: OXYTOCIN 30 UNITS/NS 500 ML 30 UNITS/500 ML BAG 125 UNITS IV CONT (12:00)
[2024-09-21] MEDS: WITCH HAZEL 40 PADS 1 PAD (12:37)
[2024-09-21] MEDS: BENZOCAINE 20% AER SPR (*SP) 56 GM CAN 1 SPRAY (12:37)
[2024-09-21 13:20] LABS: Amphetamine Screen Urine Negative (Negative); Barbiturate Screen Urine Negative (Negative); Benzodiazepines Screen Urine Negative (Negative); Cannabinoid Screen Urine Positive (Negative); Cocaine Screen Urine Negative (Negative); Methadone Screen Urine Positive (Negative); Opiate Screen Urine Negative (Negative); Phencyclidine Screen Urine Negative (Negative)
--- NOTE | 2024-09-21 14:30 | OBPPTRN ---
Patient transferred to post room #286 via wheelchair. Support person present. Oriented to unit, room, information board, rooming in, admission packet and security measures. Patient verbalizes understanding.
[2024-09-21] MEDS: IBUPROFEN 600 MG TABLET PO (20:05)
[2024-09-22] MEDS: ACETAMINOPHEN 325 MG TABLET 650 MG PO ×3 (00:35→22:53)
[2024-09-22 04:30] VITALS: BP 126/88; PULSE 65; RESP 20; TEMP 36.9; O2SAT 100
[2024-09-22] MEDS: methADONE HCL (*CRX) 10 MG TABLET 150 MG PO (04:33)
[2024-09-22 05:21] LABS: Hematocrit 27.9 % (37.0-47.0)
[2024-09-22] MEDS: DOCUSATE SODIUM 100 MG CAPSULE PO ×2 (07:02→17:10)
[2024-09-22] MEDS: POLYSACCHARIDE IRON COMPLEX 150 MG CAPSULE PO ×2 (07:02→17:10)
[2024-09-22] MEDS: MULTIVIT/MIN/PREN/FOL AC/IRON TABLET 1 TAB PO (07:02)
[2024-09-22 07:35] VITALS: BP 128/64; PULSE 85; RESP 16; TEMP 36.9; O2SAT 97
--- NOTE | 2024-09-22 08:25 | P.PNOB_ITS ---
OB - PN: Subj Subjective Date/time seen: 09/22/24 08:25 Patient comments: no complaints, pain well controlled, incisional pain, tolerating diet and flatus present OB - PN: Obj Data Labs 09/22/24 04:19 Labs: Laboratory Results - last 24 hr 09/21/24 09/21/24 09/22/24 10:49 12:57 04:19 WBC 10.0 RBC 4.04 L Hgb 11.7 L 9.0 L Hct 36.3 L 27.9 L MCV 89.9 MCH 29.0 MCHC 32.2 RDW 16.0 H Plt Count 260 MPV 11.2 H Immature Gran % (Auto) 0.5 Neut % (Auto) 76.6 H Lymph % (Auto) 16.1 L [place] % (Auto) 5.2 Eos % (Auto) 1.1 Baso % (Auto) 0.5 Lymph # (Auto) 1.61 [place] # (Auto) 0.5 Eos # (Auto) 0.1 Baso # (Auto) 0.1 Abs Immat Gran (auto) 0.05 H Absolute Neuts (auto) 7.6 H Absolute Nucleated RBC 0.000 Nucleated RBC % 0.0 Urine Opiates Screen Negative Urine Methadone Screen Positive A Ur Barbiturates Screen Negative Ur Phencyclidine Scrn Negative Ur Amphetamine Screen Negative U Benzodiazepines Scrn Negative Urine Cocaine Screen Negative U Cannabinoids Screen Positive A RPR Non-reactive HIV 1&2 Ab/P24 Ag 4thGn Negative Blood Type O Positive Antibody Screen Negative OB - PN A/P Plan day: 1 Plan: routine care Comments: No problems, routine care Time Spent With Patient Time: Total time spent is greater than 50% in coordination of care (as documented) at patient's floor/unit and/or counseling patient: Exam 2 Const: General: comfortable, no acute distress and alert Resp: Effort & Inspection: normal respiratory effort Auscultation: no crackles, no rales and no rhonchi Cardio: Rate: regular rate Heart sounds: no click, no murmurs and no rubs GI: Inspection: non-distended GI Palp: No Tenderness to palpation present (GI) Auscultation: normal bowel sounds Other: Incision - CDI Extrem: General: normal to inspection, no pedal edema and no calf tenderness
--- NOTE | 2024-09-22 09:15 | PC.NURSE ---
Observed mother with latched to the [right] breast in [cradle] position. [was] able to maintain an appropriate latch. Mother [declines] nipple pain/discomfort [throughout feeding]. Encouraged mother to keep awake and nursing at the breast for 15 minutes. Discussed ways to keep infant awake and nursing when she is sleepy at the breast. Mother voiced understanding of the education shared, to call for assistance if the does not latch or if there is discomfort with . name/number on communication board. Reported to the Primary RN.?
--- NOTE | 2024-09-22 15:49 | PCCCNOTE ---
Addendum entered by Rebecca García, [employer] S[employer]Y PROGRAM COORDINATOR 09/23/24 08:34: 09/23/24 8:15am Spoke with Ashwini Torres from [facility] hotline since pt. was positive for prescibed methadone and THC. Situation was documented and no investigation taken Intake ID#[id number]. Original Note: Care Coordination. Patient referred to CC for positive UDS for methadone and THC. Pt. reports she goes to [facility] in [place], [place]. Met with pt. and FOB at bedside. Pt. reporst this is 3rd baby and all live together. Pt. thinks she's over-resourced for WIC. Provided her with center information. Pt. reports having all necessary baby care items including breast pump. She reports having good family support. She denies any substance use history and that she is on methadone for old knee injuries that pain management referred her to methadone clinic. Per RN, baby will likely stay a couple more days to watch for any withdrawal from methadone. Will follow up tomorrow.
[2024-09-22] MEDS: IBUPROFEN 600 MG TABLET PO ×2 (17:10→22:52)
[2024-09-22 21:12] VITALS: BP 128/83; PULSE 90; RESP 16; TEMP 36.8; O2SAT 100
[2024-09-23] MEDS: methADONE HCL (*CRX) 10 MG TABLET 150 MG PO (05:00)
[2024-09-23 09:10] VITALS: BP 131/73; PULSE 82; RESP 16; TEMP 36.4; O2SAT 97
[2024-09-23] MEDS: POLYSACCHARIDE IRON COMPLEX 150 MG CAPSULE PO ×2 (09:26→17:19)
[2024-09-23] MEDS: IBUPROFEN 600 MG TABLET PO ×2 (09:27→17:19)
[2024-09-23] MEDS: DOCUSATE SODIUM 100 MG CAPSULE PO ×2 (09:27→17:19)
[2024-09-23] MEDS: MULTIVIT/MIN/PREN/FOL AC/IRON TABLET 1 TAB PO (09:27)
[2024-09-23] MEDS: ACETAMINOPHEN 325 MG TABLET 650 MG PO ×2 (09:27→17:18)
[2024-09-23] MEDS: BENZOCAINE 20% AER SPR (*SP) 56 GM CAN 1 SPRAY TOPICAL (09:28)
[2024-09-23] MEDS: WITCH HAZEL 40 PADS 1 PAD TOPICAL ×2 (09:28→17:18)
--- NOTE | 2024-09-23 12:24 | P.DS_ITS ---
DS: Admitting Diagnosis Discharge Date 09/23/24 Admitting Diagnosis labor DS: Discharge Diagnosis Discharge Diagnosis (1) (vaginal after ): Code(s): O34.219 - Maternal care for unspecified type scar from previous delivery Status: Acute OB - DS: Summary OB Procedures : None OB Procedures Intrapartum: OB Procedures: : None Peripartum Data Laceration Description: Perineal - 2nd Degree Episiotomy description: None Time Spent with Patient Time attestation: Total time spent providing and/or coordinating discharge services: Discharge Plan Discharge Attending physician on discharge: Tarik Hughes Discharging Clinician: Tarik Hughes Patient Disposition: Home, Self-Care Activity: may shower, as tolerated and pelvic rest Diet: as tolerated Discharge Instructions: FEEDING PLAN: Your baby is and receiving formula supplementation (physician's order) at discharge. Your baby needs to feed 8-12 times every 24 hours. You may have to wake your baby to feed. Signs that your baby is effectively : * Yellow, seedy stools by day 5 * Healthy weight gain (back at weight by 2 weeks old) * Enough urine output (6 wets per day by day 6 of life) * 8 or more times every 24 hours * Mother able to hear swallowing when (?ka? sound) If infant is not meeting these guidelines, you may need to start supplementing. You can use pumped breastmilk or formula. IF BABY IS NOT SATISFIED OR NOT HAVING THE REQUIRED WET DIAPERS FOR THEIR DAYS OLD, YOU SHOULD INCREASE THE FREQUENCY AND SUPPLEMENTATION VOLUME. NOTIFY YOUR BABY?S DOCTOR IF YOUR BABY DOES NOT HAVE THE REQUIRED URINE OUTPUT. If is not effectively , you should pump after each or attempt. Pump each breast for 10-15 minutes. Pumping will help stimulate your breasts to produce milk. Follow the collection and storage sheet given to you in the Mom and Baby Guide. Remember to keep track of all feedings/elimination on the blue worksheet provided. Your baby should be supplemented with pumped breastmilk first. Formula may be used in addition to breastmilk if needed. You should supplement with: * At least 20-30 ml * It is ok to give more supplementation (breastmilk or formula) if infant seems unsatisfied or continues to show feeding cues after feeding. Continue supplementation until your baby has been evaluated by your road sign installer. Ways to increase your milk supply: * Increase frequency of or pumping * Lots of skin to skin, especially before or pumping * Pump in the morning, most moms have more milk then * Use warm washcloths and breast massage before pumping * Set your pump to the highest comfortable suction level, pumping should not hurt You may contact the Team at [phone] for questions and appointments. These discharge instructions have been explained to me and I have received a copy. Patient Instructions: Antibiotic Form Patient Language: Icelandic Stand Alone Forms: General Discharge Information Follow-up/Referrals: Tarik Hughes MD [Physician] - 4 Weeks Discharge Medications: New docusate sodium 100 mg Capsule 100 mg PO BID PRN (Reason: Constipation) Qty: 60 0RF ibuprofen 600 mg Tablet 600 mg PO Q6H PRN (Reason: Cramping) Qty: 30 0RF Continued methadone 10 mg tablet 150 mg PO QAM prenat.vits,shelbie,[id number] Tablet PO DAILY ferrous sulfate 27 mg iron tablet 27 mg PO DAILY Date of admission: 09/21/24 10:04 Primary Care Provider: UNKNOWN,DOCTOR Admitting Provider: Pierre Spears Attending physician on admission: Pierre Spears Condition: Stable
--- NOTE | 2024-09-23 12:26 | P.PNOB_ITS ---
OB - PN: Subj Subjective Date/time seen: 09/23/24 12:26 Interval history: PPD#2 Doing well, pain controlled Voiding without issue Ready for discharge home , supplementing with formula OB - PN: Obj Data Labs 09/22/24 04:19 OB - PN A/P Assessment and Plan (1) (vaginal after ): Code(s): O34.219 - Maternal care for unspecified type scar from previous delivery Status: Acute Plan day: 2 Plan: routine care and discharge home Comments: baby being monitored for methadone withdrawal; discussed no care bed for patient Time Spent With Patient Time: Total time spent is greater than 50% in coordination of care (as documented) at patient's floor/unit and/or counseling patient: Review of Systems 2 Review of Systems: All systems reviewed & are unremarkable except as noted in HPI and below Exam 2 Const: General: comfortable and no acute distress O rientation/consciousness: patient oriented x3 Resp: Effort & Inspection: normal respiratory effort
--- NOTE | 2024-09-23 12:50 | PC.NURSE ---
Armida Garay DCFS worker here to see mom and baby. Copy of ID taken and placed on chart
--- NOTE | 2024-09-23 14:00 | PC.NURSE ---
Checked in with mother to see if feedings were still going ok. Baby has lost 9.96% of her weight and the night summer school coordinator had ordered supplementation but mom had initially refused to give formula. The summer school coordinator today also ordered supplementation of at least 15ml of pumped milk or formula after each . The night RN had given mom a pump and she is getting 1-2mls each pumping session. Baby is sleepy still and mom says baby doesn't want to suck on the breast now that she has taken formula from the bottle. Suggested she try some drops of expressed milk or formula to entice baby to latch and she said that she had tried that already without success. Baby is currently sucking vigorously on the pacifier. She seems comfortable with her plan to attempt, pump, and bottle feed. Mom denies pain with feeding or pumping, concerns, or questions. Reported to primary RN.
--- NOTE | 2024-09-23 14:20 | PCCCNOTE ---
Care Coordination. Received a call from RNSarah, that [facility] curve cleaner, Armida Garay, showed up to see mom. I spoke with Armida and she reports not being sure why situation ended up being taken as a report, but she came out to see mom and baby. She reports they will NOT be taking baby into care that pt.'s methadone use was legit and they verified that with clinic. She reports Juan Thacker will be pt.'s primary worker in [place], but likely to close case quickly per Armida. RNSarah, updated.
--- NOTE | 2024-09-23 17:23 | PC.NURSE ---
Went in to give evening meds and discharge papers, mother very nervous and it looked like mother shoved something under the blanket she was sitting on. The whole time I was in the room she was fidgeting and readjusting the blanket. I did not see what or if anything was under the blanket. Discharge instructions given and papers signed
--- NOTE | 2024-09-23 17:30 | PC.NURSE ---
Pt discharged to a [facility] due to baby having stay for weight loss. Discharge instructions given.
[2024-09-24 08:54] VITALS: BP 122/73; PULSE 101; RESP 18; TEMP 36.6; O2SAT 98
--- NOTE | 2024-09-26 14:36 | PCCCNOTE ---
Care Coordination. [facility] and unfounded. Notified RNHeather.
== END 2024-09-23 17:30 | disposition home or self-care (01) | DRG 560 ==
LOC: ANHLDR 14:36 → ANHOB2 09-23 12:19 → ANHLDR 09-24 08:59
PROVIDERS: Admitting Provider Obstetrics & Gynecology; Visit Provider Obstetrics & Gynecology
DX: O62.3 Precipitate labor (principal); Z37.0 Single live birth; Z3A.39 39 weeks gestation of pregnancy; O70.1 Second degree perineal laceration during delivery; O34.211 Maternal care for low transverse scar from previous cesarean delivery
CPT/HCPCS: 36415; 80307; 85014; 85018; 85025; 86592; 86703; 86850; 86900; 86901; A9270; G0432; J2590